=== PATIENT | female | born 1985 | race Caucasian/White ===

== ENCOUNTER 2016-07-24 11:56 | Emergency (ER) | payer SELFPAY ==
[~2016-07-24] VITALS: Ht 157.5 cm; Wt 64.0 kg
[~2016-07-24 11:56] MED LIST: CLIN-73 PO; HC30CR25 TOP; HYDR28.470 TP; PRED20TA PO
[2016-07-24 12:00] VITALS: Ht 157.5 cm; Wt 64.0 kg
== END 2016-07-24 13:15 | disposition left against medical advice (07) ==
LOC: FTE 11:56
DX: Z53.21 Procedure and treatment not carried out due to patient leaving prior to being seen by health care provider (principal)

== ENCOUNTER 2016-07-24 14:15 | Emergency (ER) | payer SELFPAY ==
[~2016-07-24] VITALS: Ht 175.3 cm; Wt 64.0 kg
[2016-07-24 14:44] VITALS: Ht 175.3 cm; Wt 64.0 kg
== END 2016-07-24 16:05 | disposition left against medical advice (07) ==
LOC: FTE 14:15
DX: Z53.21 Procedure and treatment not carried out due to patient leaving prior to being seen by health care provider (principal)

== ENCOUNTER 2018-01-22 16:34 | Emergency (ER) | END 2018-01-22 18:04 | disposition left against medical advice (07) ==

== ENCOUNTER 2018-01-27 22:31 | Emergency (ER) | END 2018-01-28 04:51 | disposition home or self-care (01) ==

== ENCOUNTER 2018-04-21 07:15 | Emergency (ER) | END 2018-04-21 07:55 | disposition home or self-care (01) ==

== ENCOUNTER 2018-09-07 18:41 | Emergency (ER) | payer SELFPAY ==
[~2018-09-07] VITALS: Ht 185.4 cm; Wt 67.0 kg
[~2018-09-07 18:41] MED LIST changes: -CLIN-73 PO; +CLIN300C10 PO; +GENT5DRO28 RIGHT EYE; +IBUP-1542 PO; +MUPI22OI2 TOP; +NITR-58 PO
[2018-09-07 19:07] VITALS: BP 110/69; PULSE 76; RESP 18; Ht 185.4 cm; Wt 67.0 kg
[2018-09-08] MEDS ORDERED: CLIN300C10 PO (11:05)
[2018-09-08] MEDS ORDERED: IBUP-1542 PO (11:05)
== END 2018-09-07 23:40 | disposition left against medical advice (07) ==
LOC: FTE 18:41
DX: Z53.21 Procedure and treatment not carried out due to patient leaving prior to being seen by health care provider (principal)

== ENCOUNTER 2018-09-08 09:56 | Emergency (ER) | payer OTHER ==
[~2018-09-08] VITALS: Wt 77.0 kg
[2018-09-08] MEDS ORDERED: BACITRACIN 0.9 GM OINT TOP ONE (11:00)
[2018-09-08] MEDS ORDERED: IBUP-1542 PO (11:05)
[2018-09-08] MEDS ORDERED: CLIN300C10 PO (11:05)
--- NOTE | 2018-09-08 11:10 | ERD ---
ER Documentation Chief Complaint Chief Complaint RIGHT LOWER LEG POSSIBLE SPIDER BITE HPI 33-year-old female presents with complaint of bug bite with associated erythema to the lower right leg. She states she thinks it might of been a spider because her roommate had been bitten by a spider but she did not see the actual bug. Not taking any treatments for it. States that it is painful. Pain is worse with palpation. She is unsure if she is up-to-date on her tetanus. Denies any fevers, nausea, vomiting, diarrhea. Allergic to penicillins. Currently taking Adderall and spironolactone. ROS All systems reviewed and are negative except as per history of present illness. Medications Home Meds Active Scripts Ibuprofen* (Motrin*) 600 Mg Tab, 600 MG PO Q6 for pain, #30 TAB Prov:CHANEL TRUJILLO 09/08/18 Clindamycin Hcl* (Clindamycin Hcl*) 300 Mg Capsule, 300 MG PO QID for cellulitis for 7 Days, #28 CAP Prov:CHANEL TRUJILLO 09/08/18 Ibuprofen* (Motrin*) 600 Mg Tab, 600 MG PO Q8 for pain, #30 TAB Prov:ABBIE ERICKSON 04/21/18 Gentamicin Sulfate* (Gentamicin Sulfate* Ophth) 0.3% - 5 Ml Drops, 1 DROP RIGHT EYE Q4 for 7 Days, EA Prov:ABBIE ERICKSON 04/21/18 Mupirocin* (Bactroban*) 2% -22 Gram Oint...g., 1 APPLIC TOP BID for 7 Days, EA Prov:ABBIE ERICKSON 04/21/18 Nitrofurantoin Monohyd Macrocr* (Macrobid*) 100 Mg Capsr, 100 MG PO BID for 7 Days, #14 CAP Prov:AKANKSHAMIGUEL 01/28/18 Prednisone* (Prednisone*) 20 Mg Tab, 20 MG PO DAILY for 4 Days, #4 TAB 0 Refills Prov:EDWINA GONZALES PA-C 05/10/16 Hydrocortisone Acetate/Aloe V (Hydrocortisone-Aloe 0.5% Cream) 28.4 Gm Cream..g., 28.4 GM TP BID for 7 Days, #60 GM 0 Refills Prov:EDWINA GONZALES PA-C 05/10/16 Clindamycin Hcl* (Clindamycin Hcl*) 300 Mg Capsule, 300 MG PO TID for 10 Days, #30 CAP 0 Refills Prov:EDWINA GONZALES PA-C 05/10/16 Clindamycin Hcl* (Clindamycin Hcl*) 300 Mg Capsule, 300 MG PO TID for 10 Days, CAP Prov:MART ENGLISH MD 04/10/16 Hydrocortisone* Topical (Hydrocortisone* Topical) 2.5%-28.3 Gm Cream..g., 1 APPLIC TOP BID, #1 TUB Prov:MART ENGLISH MD 04/10/16 Allergies Allergies: Coded Allergies: Penicillins (Verified Allergy, Mild, 09/08/18) PMhx/Soc History of Surgery: No Anesthesia Reaction: No Hx Neurological Disorder: No Hx Respiratory Disorders: No Hx Cardiac Disorders: No Hx Psychiatric Problems: Yes (ADHD, Anxiety) Hx Miscellaneous Medical Probl: Yes (acne) Hx Alcohol Use: No Hx Substance Use: Yes (previous drug user) Hx Tobacco Use: No Smoking Status: Never smoker FmHx Family History: No diabetes, No coronary disease, No other Physical Exam Vitals Vital Signs Date Temp Pulse Resp B/P (MAP) Pulse Ox O2 O2 Flow FiO2 Time Delivery Rate 09/08/18 98.1 71 18 110/71 99 10:00 (84) Physical Exam Const: No acute distress Head: Atraumatic Eyes: Normal Conjunctiva ENT: Normal External Ears, Nose and Mouth. Neck: Full range of motion. No meningismus. Resp: Clear to auscultation bilaterally Cardio: Regular rate and rhythm, no murmurs Abd: Soft, non tender, non distended. Normal bowel sounds Skin: No petechiae or rashes Back: No midline or flank tenderness Ext: Approximate 5 cm area of erythema located on the right lower extremity with central draining abscess. Abscess is indurated and nonfluctuant. There is no lymphatic streaking noted. The area is tender to palpation. Neur: Awake and alert Psych: Normal Mood and Affect Results 24 hrs Current Medications Medications Dose Sig/Korin Start Time Status Last (Trade) Ordered Route PRN Stop Time Admin Dose Reason Admin Bacitracin 1 applic ONCE ONCE 09/08/18 DC (Bacitracin TOP 11:00 Oint (Ud)) 09/08/18 11:02 Diphtheria/ 0.5 ml ONCE ONCE 09/08/18 Tetanus/Acell IM* 11:30 Pertussis 09/08/18 11:31 (Adacel) Procedures/MDM 33-year-old female presents with complaint of bug bite with associated erythema to the lower right leg. She states she thinks it might of been a spider because her roommate had been bitten by a spider but she did not see the actual bug. Not taking any treatments for it. States that it is painful. Pain is worse with palpation. She is unsure if she is up-to-date on her tetanus. Denies any fevers, nausea, vomiting, diarrhea. Allergic to penicillins. Currently taking Adderall and spironolactone. Presentation is consistent with abscess with surrounding cellulitis. Abscess appears to be self draining and is nonfluctuant and indurated so there is no indication to do I&D in the ER. Patient was given Rx for clindamycin and told to return in 2 days for follow-up. Area was cleansed and dressings were applied along with bacitracin. Patient discharged with strict ER precautions. Patient advised to follow up with PMD. All questions answered at discharge. Departure Diagnosis: Primary Impression: Cellulitis Site of cellulitis: extremity Site of cellulitis of extremity: lower extremity Laterality: right Qualified Codes: L03.115 - Cellulitis of right lower limb Additional Impression: Abscess Condition: Stable Patient Instructions: Cellulitis, Abscess, Antiobiotic Treatment Only Referrals: [facility] YOU HAVE RECEIVED A MEDICAL SCREENING EXAM AND THE RESULTS INDICATE THAT YOU DO NOT HAVE A CONDITION THAT REQUIRES URGENT TREATMENT IN THE EMERGENCY DEPARTMENT. FURTHER EVALUATION AND TREATMENT OF YOUR CONDITION CAN WAIT UNTIL YOU ARE SEEN IN YOUR DOCTORS OFFICE WITHIN THE NEXT 1-2 DAYS. IT IS YOUR RESPONSIBILITY TO MAKE AN APPOINTMENT FOR FOLOW-UP CARE. IF YOU HAVE A PRIMARY DOCTOR --you should call your primary doctor and schedule an appointment IF YOU DO NOT HAVE A PRIMARY DOCTOR YOU CAN CALL OUR PHYSICIAN REFERRAL HOTLINE AT IF YOU CAN NOT AFFORD TO SEE A PHYSICIAN YOU CAN CHOSE FROM THE FOLLOWING [facility] [address] [facility] [address] [facility] [address] [facility] [address] [facility] [address] [facility]. [facility] [address] Additional Instructions: Return to this facility in 2 DAYS for a follow-up exam.Return sooner if your condition worsens. CHANEL TRUJILLO Sep 08, 2018 11:10
[2018-09-08 11:30] VITALS: BP 106/72; PULSE 68; RESP 18
[2018-09-08] MEDS ORDERED: DIPHTH/TET/ACEL PERTUSS (ADULT) 0.5 ML VIAL IM* ONE (11:30)
== END 2018-09-08 11:33 | disposition home or self-care (01) ==
LOC: FTE 09:56
DX: L03.115 Cellulitis of right lower limb (principal); L02.415 Cutaneous abscess of right lower limb; F90.9 Attention-deficit hyperactivity disorder, unspecified type; Z23 Encounter for immunization
CPT/HCPCS: 90471; 90715; Z7502; Z7610

== ENCOUNTER 2018-10-09 01:34 | Emergency (ER) | payer OTHER ==
[~2018-10-09] VITALS: Ht 175.3 cm; Wt 66.0 kg
[2018-10-09 01:37] VITALS: BP 110/73; PULSE 66; RESP 16; Ht 175.3 cm; Wt 66.0 kg
--- NOTE | 2018-10-09 03:22 | ERD ---
ER Documentation Chief Complaint Chief Complaint Pt reports dysuria x 5 days and hx of UTIs HPI 33-year-old female, no medical history, presents to the emergency department, complaining of 5 days with dysuria, associated with pelvic discomfort. The patient denies fever, no chills, no nausea or vomiting. No vaginal discharge. No medications taken at this time for the symptoms ROS All systems reviewed and are negative except as per history of present illness. Medications Home Meds Active Scripts Phenazopyridine Hcl* (Pyridium*) 200 Mg Tab, 200 MG PO TID PRN for URINARY PAIN, #6 TAB Prov:SHERRY TAPIA MD 10/09/18 Ciprofloxacin Hcl* (Ciprofloxacin Hcl*) 250 Mg Tablet, 250 MG PO BID for 5 Days, #10 TAB Prov:SHERRY TAPIA MD 10/09/18 Ibuprofen* (Motrin*) 600 Mg Tab, 600 MG PO Q6 for pain, #30 TAB Prov:CHANEL TRUJILLO 09/08/18 Clindamycin Hcl* (Clindamycin Hcl*) 300 Mg Capsule, 300 MG PO QID for cellulitis for 7 Days, #28 CAP Prov:CHANEL TRUJILLO 09/08/18 Ibuprofen* (Motrin*) 600 Mg Tab, 600 MG PO Q8 for pain, #30 TAB Prov:ABBIE ERICKSON 04/21/18 Gentamicin Sulfate* (Gentamicin Sulfate* Ophth) 0.3% - 5 Ml Drops, 1 DROP RIGHT EYE Q4 for 7 Days, EA Prov:ABBIE ERICKSON 04/21/18 Mupirocin* (Bactroban*) 2% -22 Gram Oint...g., 1 APPLIC TOP BID for 7 Days, EA Prov:ABBIE ERICKSON 04/21/18 Nitrofurantoin Monohyd Macrocr* (Macrobid*) 100 Mg Capsr, 100 MG PO BID for 7 Days, #14 CAP Prov:MIGUEL VALE 01/28/18 Prednisone* (Prednisone*) 20 Mg Tab, 20 MG PO DAILY for 4 Days, #4 TAB 0 Refills Prov:EDWINA GONZALES PA-C 05/10/16 Hydrocortisone Acetate/Aloe V (Hydrocortisone-Aloe 0.5% Cream) 28.4 Gm Cream..g., 28.4 GM TP BID for 7 Days, #60 GM 0 Refills Prov:JANETEDWINA JOHNSON 05/10/16 Clindamycin Hcl* (Clindamycin Hcl*) 300 Mg Capsule, 300 MG PO TID for 10 Days, #30 CAP 0 Refills Prov:JANETEDWINA JOHNSON 05/10/16 Clindamycin Hcl* (Clindamycin Hcl*) 300 Mg Capsule, 300 MG PO TID for 10 Days, CAP Prov:MART ENGLISH MD 04/10/16 Hydrocortisone* Topical (Hydrocortisone* Topical) 2.5%-28.3 Gm Cream..g., 1 A PPLIC TOP BID, #1 TUB Prov:MART ENGLISH MD 04/10/16 Allergies Allergies: Coded Allergies: Penicillins (Verified Allergy, Mild, 09/08/18) PMhx/Soc History of Surgery: No Anesthesia Reaction: No Hx Neurological Disorder: No Hx Respiratory Disorders: No Hx Cardiac Disorders: No Hx Psychiatric Problems: Yes (ADHD, Anxiety) Hx Miscellaneous Medical Probl: Yes (acne) Hx Alcohol Use: No Hx Substance Use: Yes (previous drug user) Hx Tobacco Use: No Smoking Status: Current every day smoker Physical Exam Vitals Vital Signs Date Temp Pulse Resp B/P (MAP) Pulse Ox O2 O2 Flow FiO2 Time Delivery Rate 10/09/18 98.7 66 16 110/73 100 01:37 (85) Physical Exam Const: No acute distress Head: Atraumatic Eyes: Normal Conjunctiva ENT: Normal External Ears, Nose and Mouth. Neck: Full range of motion. No meningismus. Resp: Clear to auscultation bilaterally Cardio: Regular rate and rhythm, no murmurs Abd: Soft, non tender, non distended. Normal bowel sounds Skin: No petechiae or rashes Back: No midline or flank tenderness Ext: No cyanosis, or edema Neur: Awake and alert Psych: Normal Mood and Affect Results 24 hrs Laboratory Tests Test 10/09/18 03:37 Bedside Urine pH (LAB) 5.5 Bedside Urine Protein (LAB) Negative Bedside Urine Glucose (UA) Negative Bedside Urine Ketones (LAB) Negative Bedside Urine Blood Negative Bedside Urine Nitrite (LAB) Negative Bedside Urine Leukocyte Esterase (L Trace POC Beta HCG, Qualitative NEGATIVE Current Medications Medications Dose Sig/Korin Start Time Status Last (Trade) Ordered Route PRN Stop Time Admin Dose Reason Admin 250 mg ONCE ONCE 10/09/18 DC 10/09/18 Ciprofloxacin PO 03:30 03:35 (Cipro) 10/09/18 03:31 200 mg ONCE ONCE 10/09/18 DC 10/09/18 Phenazopyridi PO 03:30 03:35 ne HCl 10/09/18 03:31 (Pyridium) Procedures/MDM Differential diagnosis include but not limited to: UTI, colitis, gastroenteritis, kidney stones, irritable bowel syndrome, inflammatory bowel syndrome, malabsorption syndrome, cholelithiasis, food intolerance, medication side effect, pancreatitis, diverticulitis, bowel obstruction. Low suspicion for acute abdomen Physical examination and clinical presentation consistent most likely with acute cystitis During the ED course the patient remained stable, no new complaints. The patient received treatment in the emergency department with ciprofloxacin and Pyridium Results and clinical impression discussed with patient who agrees with management. The patient is stable to be treated outpatient and will be discharged home, some side effects of prescribed medications (headache, rash, nausea, vomiting, diarrhea, drowsiness, habituation, bleeding, hypertension, interactions with other medications) were reviewed. The patient was instructed to follow up with the primary care provider in the next 48h. If symptoms persist, worsen or new symptoms develop, then patient should return to the ED immediately. Instructions explained and given directly by me to the patient with acknowledgment and demonstrated understanding. Disclaimer: Inadvertent spelling and grammatical errors are likely due to EHR/dictation software use and do not reflect on the overall quality of patient care. Also, please note that the electronic time recorded on this note does not necessarily reflect the actual time of the patient encounter. Departure Diagnosis: Primary Impression: Urinary tract infection Condition: Stable Additional Instructions: Thank you very much for allowing us to participate in your care. Your health and safety is our top priority at [facility]. The evaluation in the emergency department has been done to rule out an acute emergency, therefore, chronic conditions like malignancy or other diseases have not been evaluated; therefore, you need to follow up with a primary care provider in the next 48h. If symptoms persist, worsen or new symptoms develop, then patient should return to the ED immediately. Call your primary care doctor TOMORROW for an appointment during the next 2-4 days and bring all the information provided. Have prescriptions filled and follow precisely the directions on the label. If the symptoms get worse and your provider is unavailable, return to the Emergency Department immediately. SHERRY TAPIA MD Oct 09, 2018 03:22
[2018-10-09] MEDS ORDERED: PHENAZOPYRIDINE 100 MG TAB PO ONE (03:30)
[2018-10-09] MEDS ORDERED: CIPROFLOXACIN 250 MG TAB PO ONE (03:30)
[2018-10-09] MEDS ORDERED: PHEN-538 PO (04:16)
[2018-10-09] MEDS ORDERED: CIPR-193 PO (04:16)
== END 2018-10-09 04:24 | disposition home or self-care (01) ==
LOC: FTE 01:34
DX: N39.0 Urinary tract infection, site not specified (principal); F17.210 Nicotine dependence, cigarettes, uncomplicated
CPT/HCPCS: 81003; 81025; Z7502; Z7610; 99283